=== PATIENT | male | born 1980 | race Caucasian/White ===

== ENCOUNTER 2021-09-10 05:43 | Inpatient (IN) ==
[2021-09-10] MEDS ORDERED: VANCOMYCIN 1,000 MG VIAL ONE (06:00)
[2021-09-10] MEDS ORDERED: CLINDAMYCIN INJ 900 MG/50 ML PREMIX IV ONE (06:00)
[2021-09-10] MEDS ORDERED: MIDAZOLAM 2 MG/2 ML VIAL ONE (06:38)
[2021-09-10] MEDS ORDERED: fentaNYL 100 MCG/2 ML VIAL ONE (06:38)
[2021-09-10] MEDS ORDERED: buprenorphine HCL 0.3 MG/ML VIAL ONE (06:39)
[2021-09-10] MEDS ORDERED: LIDOCAINE 1% 5 ML VIAL ONE (06:45)
[2021-09-10] MEDS ORDERED: DEXAMETHASONE 4 MG/1 ML VIAL ONE (06:45)
[2021-09-10] MEDS ORDERED: BUPIVACAINE MPF 0.25% 30 ML VIAL ONE (06:45)
[2021-09-10] MEDS ORDERED: BUPIVACAINE MPF 0.5% 30 ML VIAL ONE (06:46)
[2021-09-10] MEDS ORDERED: FAMOTIDINE 20 MG/2 ML VIAL IV ONE (06:52)
[2021-09-10] MEDS ORDERED: LACTATED RINGERS 1,000 ML IV SCH (07:00)
[2021-09-10] MEDS ORDERED: MAGNESIUM HYDROXIDE SUSP 30 ML UDCUP PO PRN (07:01)
[2021-09-10] MEDS ORDERED: BISACODYL 10 MG SUPP RECTAL PRN (07:01)
[2021-09-10] MEDS ORDERED: ONDANSETRON 4 MG/2 ML VIAL IV PRN (07:01)
[2021-09-10] MEDS ORDERED: TEMAZEPAM 7.5 MG CAPSULE PO PRN (07:01)
[2021-09-10] MEDS ORDERED: LACTULOSE 20 GM/30 ML UDCUP PO PRN (07:01)
[2021-09-10] MEDS ORDERED: MORPHINE 2 MG/1 ML SYRINGE IV PRN ×2 (07:01→07:07)
[2021-09-10] MEDS ORDERED: PROMETHAZINE 25 MG/1 ML VIAL IM PRN (07:01)
[2021-09-10] MEDS ORDERED: NAPROXEN 500 MG TABLET PO PRN (07:04)
[2021-09-10] MEDS ORDERED: propofoL 200 MG/20 ML VIAL IV ONE ×3 (07:30)
[2021-09-10] MEDS ORDERED: INSULIN ASPART U SUBCUT SCH (08:00)
[2021-09-10] MEDS ORDERED: INSULIN SUBCUT SCH (08:00)
[2021-09-10] MEDS ORDERED: LACTATED RINGERS 1,000 ML IV ONE (08:22)
[2021-09-10] MEDS ORDERED: SEVOFLURANE 1 UNIT/15 MINUTE INH ONE ×5 (08:22→09:11)
[2021-09-10] MEDS ORDERED: SODIUM CHLORIDE 0.9% 100 ML IV ONE (08:22)
[2021-09-10] MEDS ORDERED: ONDANSETRON 4 MG/2 ML VIAL ONE (08:42)
[2021-09-10] MEDS ORDERED: TRANEXAMIC ACID 1,000 MG/10 ML VIAL ONE (08:42)
[2021-09-10] MEDS ORDERED: [UNRECOGNIZED DRUG - OTHER] PO SCH (09:00)
[2021-09-10 09:08] LABS: Bacteria,Urine Occasional /HPF (Few); Bilirubin,Urine Negative (Negative); Blood, Urine Negative (Negative); Glucose,Urine (UA) 250 mg/dL (Negative); Ketones,Urine Trace mg/dL (Negative); Mucus,Urine Occasional /LPF (Occasional); Nitrite,Urine Negative (Negative); Protein,Urine Negative (Negative); Urine Appearance Clear (Clear); Urine Color Yellow (Yellow); Urine Specific Gravity 1.025 (1.001-1.035); Urine Urobilinogen 0.2 eU/dL (<2.0)
[2021-09-10] MEDS ORDERED: GLUCAGON 1 MG VIAL IM PRN (10:08)
[2021-09-10] MEDS ORDERED: DEXTROSE 10% 250 ML BAG IV PRN (10:08)
[2021-09-10] MEDS: ASPIRIN EC 81 MG TABLET PO SCH (11:10)
[2021-09-10] MEDS: diphenhydrAMINE CAP 25 MG CAPSULE PO PRN (11:10)
[2021-09-10] MEDS: INSULIN LISPRO 100 UNIT/ML SUBCUT SCH ×3 (12:06→17:36)
[2021-09-10] MEDS: CLINDAMYCIN INJ 900 MG/50 ML PREMIX IV SCH ×2 (14:33→21:38)
[2021-09-10] MEDS ORDERED: PANTOPRAZOLE 40 MG TABLET PO SCH (21:00)
[2021-09-10] MEDS ORDERED: INSULIN GLARGINE 100 UNIT/ML SUBCUT SCH (21:00)
[2021-09-10] MEDS: FONDAPARINUX 2.5 MG/0.5 ML SYRINGE SUBCUT SCH (21:33)
[2021-09-10] MEDS: DOCUSATE SODIUM 100 MG CAPSULE PO SCH (21:35)
[2021-09-11 04:41] LABS: Basophils # 0.1 10*3/uL (0.0-0.2); Basophils % 0.6 % (0.0-0.8); Eosinophils # 0.1 10*3/uL (0.0-0.87); Eosinophils % 1.2 % (0.00-10.9); Hematocrit 36.5 VOL% (42.0-52.0); Hemoglobin 12.3 GM/DL (14.0-18.0); Immature Granulocytes % 0.5 %; Immature Granulocytes Absolute 0.05 #; Lymphocytes # 1.9 10*3/uL (1.4-4.0); Lymphocytes % 19.8 % (21.2-54.2); Mean Corpuscular HGB Conc 33.7 GM/DL (32-36); Monocytes # 1.3 10*3/uL (0.11-0.8); Monocytes % 12.9 % (1.7-12.7); Platelet Count 353 T/CUMM (130-400); Red Cell Distribution Width 13.1 % (9.3-17.3); White Blood Count 9.8 T/CUMM (4-12)
[2021-09-11 05:13] LABS: Calcium 7.9 MG/DL (8.5-10.1); Osmolality,Calculated 280.8 MOS/KG (273-304)
[2021-09-11] MEDS: diphenhydrAMINE CAP 25 MG CAPSULE PO PRN (05:37)
[2021-09-11] MEDS ORDERED: ACETAMINOPHEN 325 MG TABLET PO PRN (07:02)
[2021-09-11] MEDS: INSULIN LISPRO 100 UNIT/ML SUBCUT SCH ×3 (08:31→17:36)
[2021-09-11] MEDS: ASPIRIN EC 81 MG TABLET PO SCH (08:33)
[2021-09-11] MEDS: DOCUSATE SODIUM 100 MG CAPSULE PO SCH (08:35)
[2021-09-11] MEDS ORDERED: MULTIVITAMIN (CENTRUM) TABLET PO SCH (09:00)
[2021-09-11] MEDS ORDERED: lisinopriL 5 MG TABLET PO SCH (09:00)
[2021-09-11] MEDS ORDERED: CHOLECALCIFEROL 1,000 UNIT TABLET PO SCH (09:00)
[2021-09-11 17:00] VITALS: BP 109/58
[2021-09-11] MEDS: FONDAPARINUX 2.5 MG/0.5 ML SYRINGE SUBCUT SCH (18:03)
[2021-09-14] MEDS ORDERED: INJECTOR SUBCUT SCH (09:00)
[2021-09-14] MEDS ORDERED: SEMAGLUTIDE SUBCUT SCH (09:00)
== END 2021-09-11 16:15 | disposition home health service (06) | DRG 470 ==
LOC: N.SDSINP 05:43 → N.3E 09:45
PROVIDERS: ADMIT Orthopaedic Surgery; ATTEND Orthopaedic Surgery